=== PATIENT | male | born 1950 | race Caucasian/White ===

== ENCOUNTER 2017-03-27 14:31 | Emergency (ER) | payer MEDICARE, OTHER ==
[~2017-03-27] VITALS: Ht 182.9 cm; Wt 128.4 kg
[~2017-03-27 14:31] MED LIST: CALC-30; IBU800T PO; INSULIN ASPART; LANTUS; OMEP20TA44; SULF400T11; TRAM-297; VITAMIN D
[2017-03-27 16:21] LABS: Basophils # (auto) 0.1 uL; Eosinophils # (auto) 0.1 uL; Eosinophils % (auto) 0.9 % (0.0-7.0); Hematocrit 37.7 % (41.0-53.0); Hemoglobin 12.7 g/dL (13.5-17.5); Lymphocytes # (auto) 1.3 uL; Mean Corpuscular Hemoglobin 31.6 pg (28.0-32.0); Mean Corpuscular Hgb Conc. 33.7 g/dL (32.0-36.0); Mean Corpuscular Volume 93.6 fL (80.0-100.0); Mean Platelet Volume 9.4 fL (7.4-10.4); Monocytes # (auto) 0.5 uL; Monocytes % (auto) 6.1 % (0.0-12.0); Neutrophils # (auto) 5.9 uL; Platelet Count (auto) 191 10^3/uL (140-450); Red Cell Distribution Width 15.1 % (11.6-16.0); White Blood Cell 7.9 10^3/uL (4.4-10.8)
[2017-03-27 16:43] LABS: Albumin 3.7 g/dL (3.4-5.0); BUN/Creatinine Ratio 19.2; Bilirubin, Total 0.5 mg/dL (0.2-1.0); Calcium 8.7 mg/dL (8.5-10.1); Magnesium 2.4 mg/dL (1.6-2.6); Total Protein 7.1 g/dL (6.4-8.2)
[2017-03-27] MEDS ORDERED: cloNIDine HCL 0.1 MG TAB PO ONE (19:00)
[2017-03-27 20:00] VITALS: BP 162/88
== END 2017-03-27 20:40 | disposition home or self-care (01) ==
LOC: ER 15:02
DX: I16.0 Hypertensive urgency (principal); I48.91 Unspecified atrial fibrillation; E78.5 Hyperlipidemia, unspecified; I10 Essential (primary) hypertension; E11.40 Type 2 diabetes mellitus with diabetic neuropathy, unspecified; Z88.0 Allergy status to penicillin; Z88.8 Allergy status to other drugs, medicaments and biological substances; Z88.6 Allergy status to analgesic agent
CPT/HCPCS: 36415; 70450; 71010; 80053; 82962; 83735; 84484; 85025; 93005; 94761

== ENCOUNTER 2020-01-24 16:30 | Emergency (ER) | payer OTHER, MEDICAID ==
[~2020-01-24] VITALS: Ht 180.3 cm; Wt 117.9 kg
[2020-01-24] MEDS ORDERED: THIAMINE 100mg/ml INJ (200mg/2ml VIAL) IV ONE (16:45)
[2020-01-24 18:26] LABS: Basophils # (auto) 0 10 ^3/uL (0-0.2); Basophils % (auto) 0.5 % (0.0-2.0); Eosinophils # (auto) 0 10 ^3/uL (0-0.8); Eosinophils % (auto) 0.1 % (0.0-7.0); Hematocrit 36.7 % (41.0-53.0); Lymphocytes # (auto) 0.6 10 ^3/uL (0.4-5.4); Lymphocytes % (auto) 7.1 % (10.0-50.0); Mean Corpuscular Hemoglobin 31.6 pg (28.0-32.0); Mean Corpuscular Hgb Conc. 32.7 g/dL (32.0-36.0); Mean Corpuscular Volume 96.6 fL (80.0-100.0); Monocytes # (auto) 0.5 10 ^3/uL (0-1.3); Monocytes % (auto) 5.5 % (0.0-12.0); Neutrophils # (auto) 7.8 10 ^3/uL (1.6-8.6); Neutrophils % (auto) 86.8 % (37.0-80.0); Platelet Count (auto) 230 10^3/uL (140-450); Red Blood Cells 3.79 10^6/uL (4.5-5.90); Red Cell Distribution Width 14.2 % (11.8-14.3); White Blood Cell 8.9 10^3/uL (4.4-10.8)
[2020-01-24 18:35] LABS: Chloride 106 mmol/L (98-107); Potassium 3.8 mmol/L (3.5-5.1); Sodium 140 mmol/L (136-145)
[2020-01-24 18:39] LABS: Alanine Aminotransferase 31 U/L (16-61); Albumin 3.3 g/dL (3.4-5.0); Anion Gap 11 (5-15); BUN/Creatinine Ratio 17.4; Blood Urea Nitrogen 24 mg/dL (7-18); Calcium 8.5 mg/dL (8.5-10.1); Carbon Dioxide 23 mmol/L (21-32); GFR African American 66 mL/min; GFR Non-African American 54 mL/min; Glucose 100 mg/dL (74-106)
[2020-01-24 18:44] LABS: Alkaline Phosphatase 68 U/L (45-117); Aspartate Aminotransferase 25 U/L (15-37); Bilirubin, Total 0.1 mg/dL (0.2-1.0); Total Protein 6.5 g/dL (6.4-8.2)
[2020-01-24 19:15] LABS: Partial Thromboplastin Time 22.8 sec (23.64-32.05)
[2020-01-24 21:28] VITALS: BP 131/71
== END 2020-01-24 21:56 | disposition home or self-care (01) ==
LOC: ER 16:30 → EDBD 16:30 → ER 21:56
DX: E11.649 Type 2 diabetes mellitus with hypoglycemia without coma (principal); E78.5 Hyperlipidemia, unspecified; I10 Essential (primary) hypertension
CPT/HCPCS: 36415; 71045; 80053; 80320; 82962; 83880; 84484; 85025; 85610; 85730; 93005

== ENCOUNTER 2021-01-17 02:33 | Inpatient (IN) | payer OTHER, MEDICAID ==
[~2021-01-17] VITALS: Ht 182.9 cm; Wt 133.7 kg
[2021-01-17 03:10] LABS: Basophils # (auto) 0.1 10 ^3/uL (0-0.2); Basophils % (auto) 0.9 % (0.0-2.0); Eosinophils # (auto) 0 10 ^3/uL (0-0.8); Eosinophils % (auto) 0.6 % (0.0-7.0); Hematocrit 34.2 % (41.0-53.0); Lymphocytes # (auto) 1.4 10 ^3/uL (0.4-5.4); Lymphocytes % (auto) 19.5 % (10.0-50.0); Mean Corpuscular Hemoglobin 33.9 pg (28.0-32.0); Mean Corpuscular Volume 96.8 fL (80.0-100.0); Monocytes # (auto) 0.5 10 ^3/uL (0-1.3); Monocytes % (auto) 7.4 % (0.0-12.0); Neutrophils % (auto) 71.6 % (37.0-80.0); Nucleated Red Blood Cells % 0.2 %; Red Blood Cells 3.53 10^6/uL (4.5-5.90); Red Cell Distribution Width 14.7 % (11.8-14.3)
[2021-01-17 03:26] LABS: Alanine Aminotransferase 29 U/L (16-61); Albumin 3.3 g/dL (3.4-5.0); Anion Gap 8 (5-15); Aspartate Aminotransferase 20 U/L (15-37); BUN/Creatinine Ratio 16.3; Blood Urea Nitrogen 13 mg/dL (7-18); Calcium 8.7 mg/dL (8.5-10.1); Carbon Dioxide 25 mmol/L (21-32); Chloride 111 mmol/L (98-107); GFR African American 123 mL/min; GFR Non-African American 102 mL/min; Glucose 59 mg/dL (74-106); INR 0.95 (0.9-1.15); Magnesium 2.1 mg/dL (1.6-2.6); Partial Thromboplastin Time 23.4 sec (23.0-31.2); Potassium 3.4 mmol/L (3.5-5.1); Sodium 144 mmol/L (136-145)
[2021-01-17 03:33] LABS: Alkaline Phosphatase 94 U/L (45-117); Bilirubin, Total 0.3 mg/dL (0.2-1.0)
[2021-01-17] MEDS ORDERED: dilTIAZem 25 MG/5 ML VIAL IV ONE (04:45)
[2021-01-17] MEDS ORDERED: MORPHINE SULF INJ 2 MG/ML SYRINGE 1ML IV PRN (06:45)
[2021-01-17] MEDS ORDERED: NITROGLYCERIN 0.4 MG SL TAB SL PRN (06:45)
[2021-01-17] MEDS ORDERED: DEXTROSE (50%) 50ML SYRG IV PRN (06:45)
[2021-01-17] MEDS ORDERED: ONDANSETRON HCL 4 MG/2 ML VIAL IV PRN (06:45)
[2021-01-17] MEDS ORDERED: DOCUSATE SOD 100 MG CAP PO PRN (06:45)
[2021-01-17] MEDS ORDERED: HYDROcodone-ACET 5/325MG TAB PO PRN (06:45)
[2021-01-17] MEDS ORDERED: POTASSIUM CHL 20 Meq TABLET PO ONE (07:45)
[2021-01-17] MEDS: ACCU-CHEK COMFORT CURVE STRIP VI SCH ×4 (07:46→21:26)
[2021-01-17] MEDS: InsuLIN REG 1unit/0.01ml Soln (100units/ml) SC SCH ×4 (07:51→21:26)
[2021-01-17 08:00] LABS: Basophils # (auto) 0.1 10 ^3/uL (0-0.2); Basophils % (auto) 1.1 % (0.0-2.0); Eosinophils # (auto) 0 10 ^3/uL (0-0.8); Eosinophils % (auto) 0.2 % (0.0-7.0); Hematocrit 31.7 % (41.0-53.0); Hemoglobin 11.1 g/dL (13.5-17.5); Lymphocytes # (auto) 0.8 10 ^3/uL (0.4-5.4); Lymphocytes % (auto) 12.5 % (10.0-50.0); Mean Corpuscular Volume 97.3 fL (80.0-100.0); Monocytes # (auto) 0.6 10 ^3/uL (0-1.3); Neutrophils # (auto) 4.8 10 ^3/uL (1.6-8.6); Neutrophils % (auto) 77.2 % (37.0-80.0); Nucleated Red Blood Cells % 0.1 %; Red Blood Cells 3.25 10^6/uL (4.5-5.90); Red Cell Distribution Width 15.2 % (11.8-14.3); White Blood Cell 6.2 10^3/uL (4.4-10.8)
[2021-01-17 08:18] LABS: Albumin 2.9 g/dL (3.4-5.0); Calcium 8.4 mg/dL (8.5-10.1); Potassium 3.5 mmol/L (3.5-5.1)
[2021-01-17 08:21] LABS: BUN/Creatinine Ratio 16.5
[2021-01-17 08:24] LABS: Bilirubin, Total 0.2 mg/dL (0.2-1.0); Total Protein 6.2 g/dL (6.4-8.2)
[2021-01-17 08:43] LABS: Urine WBC None Seen /hpf (0 - 3)
[2021-01-17 09:02] LABS: Urine Bacteria NONE SEEN /hpf (None Seen); Urine Blood Negative /uL (Negative); Urine Specific Gravity 1.025 (1.001-1.035)
[2021-01-17] MEDS: MULTIPLE VITAMIN TAB PO SCH (10:13)
[2021-01-17] MEDS: ASCORBIC ACID 500 MG TAB PO SCH ×2 (10:13→21:19)
[2021-01-17] MEDS: ENOXAPARIN SOD 40 MG/0.4 ML SYRINGE SC SCH (10:13)
[2021-01-17] MEDS: ZINC SULFATE 220mg CAP or TAB PO SCH (10:13)
[2021-01-17] MEDS: FAMOTIDINE 20 MG TAB PO SCH ×2 (10:13→21:18)
[2021-01-17 11:10] VITALS: BP 162/99
[2021-01-17] MEDS ORDERED: BECL40AE11 IN (11:38)
[2021-01-17] MEDS ORDERED: LISI20TA28 PO (11:38)
[2021-01-17] MEDS ORDERED: ABIR250T2 PO (11:38)
[2021-01-17] MEDS ORDERED: PRE5T PO (11:38)
[2021-01-17] MEDS ORDERED: INSLANTI SC (11:38)
[2021-01-17] MEDS ORDERED: CALC-312 PO (11:38)
[2021-01-17] MEDS ORDERED: BECL80AE11 IN (11:38)
[2021-01-17] MEDS ORDERED: METO25TA5 PO (11:38)
[2021-01-17] MEDS ORDERED: ALBUAER3 IN (11:38)
[2021-01-17] MEDS ORDERED: ALIR1INJ SC (11:38)
[2021-01-17] MEDS ORDERED: INSLISPI SC (11:38)
[2021-01-17] MEDS ORDERED: LIRA18IN2 SUBCUT (11:38)
[2021-01-17] MEDS ORDERED: IBUP600T28 PO (11:38)
[2021-01-17] MEDS ORDERED: LEUP45IN2 IM (11:38)
[2021-01-17] MEDS: LABETALOL HCL 5 MG/ML 4ML SYRINGE IV PRN (12:37)
[2021-01-17 13:00] VITALS: BP 162/80
[2021-01-17] MEDS ORDERED: AZITHROMYCIN 250 MG TAB PO ONE (15:45)
[2021-01-17] MEDS: SODIUM CHLOR 0.9% PF (SALINE LOCK) 10ML VIAL/SYR IV SCH ×2 (15:46→21:18)
[2021-01-17] MEDS ORDERED: FUROSEMIDE 20 MG TAB PO ONE (16:00)
[2021-01-17] MEDS: guaiFENesin-DM 100/10mg/5ml SYR PO SCH ×2 (16:11→21:18)
[2021-01-17 17:00] VITALS: BP 160/84
[2021-01-17] MEDS: Glucerna Carbsteady SHAKE Vanilla 8oz PO SCH (18:00)
[2021-01-17] MEDS: CALCIUM CARB 500 MG CHEW TAB PO SCH (18:00)
[2021-01-17] MEDS: ACETAMINOPHEN 325 MG TAB PO PRN (20:25)
[2021-01-17 21:10] VITALS: BP 160/84
[2021-01-17] MEDS: METOPROLOL TARTRATE 25 MG TAB PO SCH (21:29)
[2021-01-17 22:00] VITALS: BP 164/88
[2021-01-18 05:00] VITALS: BP 161/72
[2021-01-18] MEDS: SODIUM CHLOR 0.9% PF (SALINE LOCK) 10ML VIAL/SYR IV SCH ×3 (05:38→22:06)
[2021-01-18] MEDS: LABETALOL HCL 5 MG/ML 4ML SYRINGE IV PRN (05:41)
[2021-01-18 06:12] LABS: Albumin 2.7 g/dL (3.4-5.0); Calcium 8.1 mg/dL (8.5-10.1); Potassium 4.3 mmol/L (3.5-5.1)
[2021-01-18 06:14] LABS: Basophils # (auto) 0 10 ^3/uL (0-0.2); Basophils % (auto) 0.5 % (0.0-2.0); Eosinophils # (auto) 0.1 10 ^3/uL (0-0.8); Eosinophils % (auto) 2.1 % (0.0-7.0); Hematocrit 32.7 % (41.0-53.0); Hemoglobin 11.4 g/dL (13.5-17.5); Lymphocytes % (auto) 14.1 % (10.0-50.0); Mean Corpuscular Hemoglobin 34.1 pg (28.0-32.0); Mean Corpuscular Hgb Conc. 34.8 g/dL (32.0-36.0); Mean Corpuscular Volume 98.1 fL (80.0-100.0); Monocytes # (auto) 0.6 10 ^3/uL (0-1.3); Monocytes % (auto) 8.5 % (0.0-12.0); Neutrophils # (auto) 5.2 10 ^3/uL (1.6-8.6); Neutrophils % (auto) 74.8 % (37.0-80.0); Nucleated Red Blood Cells % 0.1 %; Red Blood Cells 3.34 10^6/uL (4.5-5.90); White Blood Cell 6.9 10^3/uL (4.4-10.8)
[2021-01-18] MEDS: guaiFENesin-DM 100/10mg/5ml SYR PO SCH ×4 (06:14→22:06)
[2021-01-18] MEDS: ACCU-CHEK COMFORT CURVE STRIP VI SCH ×4 (06:14→22:08)
[2021-01-18] MEDS: InsuLIN REG 1unit/0.01ml Soln (100units/ml) SC SCH ×4 (06:14→22:14)
[2021-01-18 06:16] LABS: BUN/Creatinine Ratio 18.2; Bilirubin, Total 0.5 mg/dL (0.2-1.0); Total Protein 5.8 g/dL (6.4-8.2)
[2021-01-18] MEDS: Glucerna Carbsteady SHAKE Vanilla 8oz PO SCH ×3 (08:00→17:55)
[2021-01-18] MEDS: FUROSEMIDE 20 MG TAB PO SCH ×2 (08:07→08:12)
[2021-01-18] MEDS: LISINOPRIL 20 MG TAB PO SCH (08:08)
[2021-01-18] MEDS: METOPROLOL TARTRATE 25 MG TAB PO SCH ×2 (08:08→22:07)
[2021-01-18] MEDS ORDERED: IOHEXOL 350 MG/ML 100ML IJ ONE (08:37)
[2021-01-18 09:00] VITALS: BP 146/71
[2021-01-18] MEDS ORDERED: THROAT LOZENGES(CEPASTAT) MT PRN (10:15)
[2021-01-18] MEDS: ASCORBIC ACID 500 MG TAB PO SCH ×2 (11:03→22:07)
[2021-01-18] MEDS: ZINC SULFATE 220mg CAP or TAB PO SCH (11:03)
[2021-01-18] MEDS: MULTIPLE VITAMIN TAB PO SCH (11:03)
[2021-01-18] MEDS: FAMOTIDINE 20 MG TAB PO SCH ×2 (11:03→22:06)
[2021-01-18] MEDS: predniSONE 5 MG TAB PO SCH (11:03)
[2021-01-18] MEDS: ENOXAPARIN SOD 40 MG/0.4 ML SYRINGE SC SCH (11:04)
[2021-01-18] MEDS: AZITHROMYCIN 250 MG TAB PO SCH (11:04)
[2021-01-18] MEDS: CALCIUM CARB 500 MG CHEW TAB PO SCH ×3 (11:06→17:55)
[2021-01-18 13:00] VITALS: BP 124/63
[2021-01-18] MEDS: IPRATROPIUM BROM 0.5 MG/2.5ML INH SOL NEB PRN (13:00)
[2021-01-18] MEDS: ALBUTEROL SULF 2.5 MG/0.5ML(0.5%) NEB SOLN NEB PRN (13:00)
[2021-01-18 17:00] VITALS: BP 132/72
[2021-01-18 22:00] VITALS: BP 142/90
[2021-01-19 05:00] VITALS: BP 146/59
[2021-01-19 06:04] LABS: Calcium 8.2 mg/dL (8.5-10.1); Potassium 4.1 mmol/L (3.5-5.1)
[2021-01-19 06:06] LABS: BUN/Creatinine Ratio 17.9
[2021-01-19 06:09] LABS: Basophils # (auto) 0 10 ^3/uL (0-0.2); Basophils % (auto) 0.7 % (0.0-2.0); Eosinophils # (auto) 0.1 10 ^3/uL (0-0.8); Lymphocytes # (auto) 1.1 10 ^3/uL (0.4-5.4); Lymphocytes % (auto) 15.9 % (10.0-50.0); Monocytes # (auto) 0.6 10 ^3/uL (0-1.3)
[2021-01-19 06:11] LABS: Eosinophils % (auto) 1.7 % (0.0-7.0); Hematocrit 30.5 % (41.0-53.0); Mean Corpuscular Hemoglobin 34.8 pg (28.0-32.0); Mean Corpuscular Volume 96.7 fL (80.0-100.0); Neutrophils # (auto) 4.8 10 ^3/uL (1.6-8.6); Neutrophils % (auto) 72.7 % (37.0-80.0); Red Blood Cells 3.15 10^6/uL (4.5-5.90); Red Cell Distribution Width 14.5 % (11.8-14.3); White Blood Cell 6.7 10^3/uL (4.4-10.8)
[2021-01-19] MEDS: SODIUM CHLOR 0.9% PF (SALINE LOCK) 10ML VIAL/SYR IV SCH ×3 (06:28→22:17)
[2021-01-19] MEDS: guaiFENesin-DM 100/10mg/5ml SYR PO SCH ×4 (06:28→22:15)
[2021-01-19] MEDS: ACCU-CHEK COMFORT CURVE STRIP VI SCH ×4 (06:28→22:17)
[2021-01-19] MEDS: InsuLIN REG 1unit/0.01ml Soln (100units/ml) SC SCH ×4 (06:29→22:21)
[2021-01-19] MEDS: IPRATROPIUM BROM 0.5 MG/2.5ML INH SOL NEB PRN (08:23)
[2021-01-19] MEDS: ALBUTEROL SULF 2.5 MG/0.5ML(0.5%) NEB SOLN NEB PRN (08:23)
[2021-01-19] MEDS: Glucerna Carbsteady SHAKE Vanilla 8oz PO SCH ×3 (08:43→17:44)
[2021-01-19] MEDS: CALCIUM CARB 500 MG CHEW TAB PO SCH ×3 (08:43→17:44)
[2021-01-19 09:00] VITALS: BP 163/56
[2021-01-19] MEDS: AZITHROMYCIN 250 MG TAB PO SCH (10:45)
[2021-01-19] MEDS: ENOXAPARIN SOD 40 MG/0.4 ML SYRINGE SC SCH (10:45)
[2021-01-19] MEDS: predniSONE 5 MG TAB PO SCH (10:45)
[2021-01-19] MEDS: ASCORBIC ACID 500 MG TAB PO SCH ×2 (10:45→22:15)
[2021-01-19] MEDS: ZINC SULFATE 220mg CAP or TAB PO SCH (10:45)
[2021-01-19] MEDS: MULTIPLE VITAMIN TAB PO SCH (10:46)
[2021-01-19] MEDS: LISINOPRIL 20 MG TAB PO SCH (10:46)
[2021-01-19] MEDS: METOPROLOL TARTRATE 25 MG TAB PO SCH ×2 (10:46→22:16)
[2021-01-19] MEDS: FAMOTIDINE 20 MG TAB PO SCH ×2 (10:46→22:16)
[2021-01-19] MEDS: FUROSEMIDE 20 MG TAB PO SCH (10:47)
[2021-01-19 13:00] VITALS: BP 156/72
[2021-01-19] MEDS ORDERED: DIPHENOXYLATE W/ATROPINE 2.5 MG TAB PO PRN (16:45)
[2021-01-19 17:00] VITALS: BP 133/69
[2021-01-19 18:00] VITALS: BP 154/68
[2021-01-19] MEDS: LABETALOL HCL 5 MG/ML 4ML SYRINGE IV PRN (18:00)
[2021-01-19 22:00] VITALS: BP 152/80
[2021-01-20 05:00] VITALS: BP 122/91
[2021-01-20 05:36] LABS: Basophils # (auto) 0.1 10 ^3/uL (0-0.2); Eosinophils # (auto) 0.1 10 ^3/uL (0-0.8); Lymphocytes # (auto) 1.4 10 ^3/uL (0.4-5.4); Mean Corpuscular Hemoglobin 34.8 pg (28.0-32.0); Mean Corpuscular Volume 96.6 fL (80.0-100.0); Monocytes # (auto) 0.6 10 ^3/uL (0-1.3)
[2021-01-20 05:42] LABS: Basophils % (auto) 1.1 % (0.0-2.0); Eosinophils % (auto) 1.5 % (0.0-7.0); Hematocrit 32.5 % (41.0-53.0); Hemoglobin 11.7 g/dL (13.5-17.5); Lymphocytes % (auto) 18.7 % (10.0-50.0); Monocytes % (auto) 8.3 % (0.0-12.0); Neutrophils # (auto) 5.3 10 ^3/uL (1.6-8.6); Neutrophils % (auto) 70.4 % (37.0-80.0); Red Blood Cells 3.37 10^6/uL (4.5-5.90); Red Cell Distribution Width 14.8 % (11.8-14.3); White Blood Cell 7.6 10^3/uL (4.4-10.8)
[2021-01-20 05:52] LABS: Potassium 3.9 mmol/L (3.5-5.1)
[2021-01-20 05:59] LABS: BUN/Creatinine Ratio 17.6; Calcium 8.5 mg/dL (8.5-10.1)
[2021-01-20] MEDS: SODIUM CHLOR 0.9% PF (SALINE LOCK) 10ML VIAL/SYR IV SCH ×2 (06:25→14:12)
[2021-01-20] MEDS: guaiFENesin-DM 100/10mg/5ml SYR PO SCH ×3 (06:26→17:00)
[2021-01-20] MEDS: ACCU-CHEK COMFORT CURVE STRIP VI SCH ×3 (06:26→17:53)
[2021-01-20] MEDS: InsuLIN REG 1unit/0.01ml Soln (100units/ml) SC SCH ×3 (06:28→17:53)
[2021-01-20] MEDS: Glucerna Carbsteady SHAKE Vanilla 8oz PO SCH ×3 (08:00→18:14)
[2021-01-20 08:23] VITALS: BP 125/55
[2021-01-20] MEDS: ENOXAPARIN SOD 40 MG/0.4 ML SYRINGE SC SCH (09:47)
[2021-01-20] MEDS: AZITHROMYCIN 250 MG TAB PO SCH (09:48)
[2021-01-20] MEDS: predniSONE 5 MG TAB PO SCH (09:48)
[2021-01-20] MEDS: LISINOPRIL 20 MG TAB PO SCH (09:48)
[2021-01-20] MEDS: MULTIPLE VITAMIN TAB PO SCH (09:49)
[2021-01-20] MEDS: FAMOTIDINE 20 MG TAB PO SCH (09:49)
[2021-01-20] MEDS: METOPROLOL TARTRATE 25 MG TAB PO SCH (09:49)
[2021-01-20] MEDS: CALCIUM CARB 500 MG CHEW TAB PO SCH ×3 (09:49→18:00)
[2021-01-20] MEDS: FUROSEMIDE 20 MG TAB PO SCH ×2 (09:49→09:58)
[2021-01-20] MEDS: ASCORBIC ACID 500 MG TAB PO SCH (09:49)
[2021-01-20] MEDS: ZINC SULFATE 220mg CAP or TAB PO SCH (09:49)
[2021-01-20] MEDS: ACETAMINOPHEN 325 MG TAB PO PRN (10:01)
[2021-01-20 10:10] VITALS: BP 125/55
[2021-01-20 12:35] VITALS: BP 116/46
[2021-01-20] MEDS ORDERED: APIX5TAB PO (16:12)
[2021-01-20 16:39] VITALS: BP 150/78
[2021-01-20 18:16] VITALS: BP 116/46
== END 2021-01-20 20:28 | disposition home or self-care (01) | DRG 308 ==
LOC: EDBD 02:33 → EDUNIT# 02:33 → ER 02:33 → TELE 06:31 → TELE-WESTW 10:21
PROVIDERS: ADMIT Nurse Practitioner Family; ATTEND Internal Medicine
DX: I48.91 Unspecified atrial fibrillation (principal); I50.33 Acute on chronic diastolic (congestive) heart failure; J44.1 Chronic obstructive pulmonary disease with (acute) exacerbation; J44.0 Chronic obstructive pulmonary disease with (acute) lower respiratory infection; E44.0 Moderate protein-calorie malnutrition; Z68.41 Body mass index [BMI] 40.0-44.9, adult; D68.69 Other thrombophilia; J20.9 Acute bronchitis, unspecified; I48.92 Unspecified atrial flutter; I11.0 Hypertensive heart disease with heart failure; Z20.822 Contact with and (suspected) exposure to COVID-19; E11.649 Type 2 diabetes mellitus with hypoglycemia without coma; E87.6 Hypokalemia; D63.8 Anemia in other chronic diseases classified elsewhere; C61 Malignant neoplasm of prostate; E66.01 Morbid (severe) obesity due to excess calories; E78.5 Hyperlipidemia, unspecified; I70.0 Atherosclerosis of aorta; Z88.6 Allergy status to analgesic agent; Z88.0 Allergy status to penicillin; Z79.01 Long term (current) use of anticoagulants; Z79.52 Long term (current) use of systemic steroids
CPT/HCPCS: 36415; 36600; 71045; 71275; 80048; 80053; 81001; 82805; 82962; 83036; 83735; 83880; 84443; 84484; 85025; 85049; 85379; 85610; 85730; 87045; 87070; 87205; 87426; 87427; 87493; 93005; 93306; 93970; 94640; 96374; 99291; G0378; J1815; J3490

== ENCOUNTER 2022-04-27 07:16 | Emergency (ER) | payer OTHER, MEDICAID ==
[~2022-04-27] VITALS: Ht 180.3 cm; Wt 125.0 kg
[~2022-04-27 07:16] MED LIST changes: +ABIR250T2 PO; +ALBUAER3 IN; +ALIR75IN2 SC; +APIX5TAB PO; +BECL80AE11 IN; -CALC-30; +CALC-312 PO; -IBU800T PO; +IBUP600T28 PO; +INSLANTI SC; +INSLISPI SC; -INSULIN ASPART; -LANTUS; +LEUP45IN2 IM; +LIRA18IN2 SUBCUT; +LISI20TA28 PO; +METO25TA5 PO; -OMEP20TA44; +PRE5T PO; -SULF400T11; -TRAM-297; -VITAMIN D
[2022-04-27 08:46] VITALS: BP 165/68
[2022-04-27] MEDS ORDERED: ACETAMINOPHEN 500 MG TAB PO ONE (09:30)
[2022-04-27] MEDS ORDERED: CLINDAMYCIN 600MG IV 50 ML IV ONE (09:30)
[2022-04-27 10:05] LABS: Basophils # (auto) 0.1 10 ^3/uL (0-0.2); Basophils % (auto) 0.9 % (0.0-2.0); Eosinophils # (auto) 0.1 10 ^3/uL (0-0.8); Eosinophils % (auto) 0.4 % (0.0-7.0); Hematocrit 36.9 % (41.0-53.0); Hemoglobin 12.3 g/dL (13.5-17.5); Lymphocytes # (auto) 1.1 10 ^3/uL (0.4-5.4); Lymphocytes % (auto) 6.9 % (10.0-50.0); Mean Corpuscular Hemoglobin 29.6 pg (28.0-32.0); Mean Corpuscular Hgb Conc. 33.4 g/dL (32.0-36.0); Mean Corpuscular Volume 88.4 fL (80.0-100.0); Monocytes % (auto) 6.4 % (0.0-12.0); Neutrophils # (auto) 13.2 10 ^3/uL (1.6-8.6); Neutrophils % (auto) 85.4 % (37.0-80.0); Red Blood Cells 4.17 10^6/uL (4.5-5.90); Red Cell Distribution Width 14.2 % (11.8-14.3); White Blood Cell 15.5 10^3/uL (4.4-10.8)
[2022-04-27 10:12] LABS: Albumin 3.1 g/dL (3.4-5.0); Calcium 9.1 mg/dL (8.5-10.1); Potassium 3.8 mmol/L (3.5-5.1)
[2022-04-27 10:16] LABS: BUN/Creatinine Ratio 16.9; Bilirubin, Total 0.6 mg/dL (0.2-1.0); Total Protein 7.2 g/dL (6.4-8.2)
[2022-04-27] MEDS ORDERED: BACDST PO (11:28)
[2022-04-27] MEDS ORDERED: CEPH-510 PO (11:28)
== END 2022-04-27 11:30 | disposition home or self-care (01) ==
LOC: ER 07:16
DX: L03.114 Cellulitis of left upper limb (principal); E11.622 Type 2 diabetes mellitus with other skin ulcer; L97.929 Non-pressure chronic ulcer of unspecified part of left lower leg with unspecified severity; J45.909 Unspecified asthma, uncomplicated; E78.5 Hyperlipidemia, unspecified; I10 Essential (primary) hypertension; Z88.0 Allergy status to penicillin; Z88.6 Allergy status to analgesic agent
CPT/HCPCS: 36415; 73130; 80053; 83605; 85025; 87040; 96365; 99284; J3490